=== PATIENT | female | born 1960 | race Caucasian/White ===

== ENCOUNTER 2016-08-22 11:57 | Emergency (ER) | payer SELFPAY ==
[~2016-08-22] VITALS: Ht 157.5 cm; Wt 52.2 kg
[~2016-08-22 11:57] MED LIST: NO MEDICATIONS
[2016-08-22 12:48] VITALS: BP 164/101
== END 2016-08-22 14:42 | disposition home or self-care (01) ==
LOC: ER 12:01
DX: L23.9 Allergic contact dermatitis, unspecified cause (principal); I10 Essential (primary) hypertension; F17.210 Nicotine dependence, cigarettes, uncomplicated; Z86.73 Personal history of transient ischemic attack (TIA), and cerebral infarction without residual deficits

== ENCOUNTER 2016-09-20 03:32 | Emergency (ER) | payer MEDICAID, MEDICARE ==
[~2016-09-20] VITALS: Ht 157.5 cm; Wt 54.4 kg
[2016-09-20 04:36] LABS: Urine RBC None Seen /hpf (0 - 4)
[2016-09-20 04:38] LABS: Basophils # (auto) 0.1 uL; Basophils % (auto) 1.1 % (0.0-2.0); CONDITION Y; DEFINITIVE SEE PRINTOUT; Eosinophils # (auto) 0.4 uL; Eosinophils % (auto) 4.8 % (0.0-7.0); Hematocrit 43.4 % (36.0-46.0); Hemoglobin 14.9 g/dL (12.2-16.2); Lymphocytes # (auto) 2.9 uL; Lymphocytes % (auto) 34.5 % (10.0-50.0); Mean Corpuscular Hemoglobin 35.4 pg (28.0-32.0); Mean Corpuscular Hgb Conc. 34.3 g/dL (32.0-36.0); Mean Corpuscular Volume 103.1 fL (80.0-100.0); Mean Platelet Volume 8.6 fL (7.4-10.4); Monocytes # (auto) 0.7 uL; Monocytes % (auto) 8.7 % (0.0-12.0); Neutrophils # (auto) 4.2 uL; Neutrophils % (auto) 50.9 % (37.0-80.0); Platelet Count (auto) 452 10^3/uL (140-450); Red Cell Distribution Width 12.7 % (11.6-16.0); White Blood Cell 8.3 10^3/uL (4.4-10.8)
[2016-09-20 04:44] LABS: Albumin 3.5 g/dL (3.4-5.0); BUN/Creatinine Ratio 11.4; Calcium 8.5 mg/dL (8.5-10.1); Potassium 3.7 mmol/L (3.5-5.1)
[2016-09-20 04:45] LABS: Urine Bilirubin Negative (Negative); Urine Blood Negative /uL (Negative); Urine Color Yellow (Yellow); Urine Glucose Normal (Normal); Urine Ketone Negative (Negative); Urine Nitrite Negative (Negative); Urine Urobilinogen Normal (Negative); Urine pH 5.5 (5.0-8.0)
[2016-09-20 04:55] LABS: Bilirubin, Total 0.1 mg/dL (0.2-1.0); Total Protein 7.4 g/dL (6.4-8.2)
[2016-09-20] MEDS ORDERED: diphenhdrAMINE HCL 12.5 MG/5 ML UD PO ONE (09:15)
[2016-09-20] MEDS ORDERED: methylPREDNISolone SOD SUCC 125 MG/2 ML VL IM ONE (09:15)
[2016-09-20 10:30] VITALS: BP 100/55
== END 2016-09-20 10:41 | disposition home or self-care (01) ==
LOC: ER 03:32
DX: L23.9 Allergic contact dermatitis, unspecified cause (principal); F12.10 Cannabis abuse, uncomplicated; F15.10 Other stimulant abuse, uncomplicated; F10.10 Alcohol abuse, uncomplicated
CPT/HCPCS: 36415; 80053; 80307; 80320; 81001; 85025; 96372; 99284; J2930

== ENCOUNTER 2016-10-30 01:05 | Emergency (ER) | payer MEDICARE ==
[~2016-10-30] VITALS: Ht 157.5 cm; Wt 51.7 kg
[2016-10-30] MEDS ORDERED: diphenhdrAMINE HCL 50 MG/1 ML VL ONE (04:25)
[2016-10-30] MEDS ORDERED: ONDANSETRON HCL 4 MG/2 ML VIAL ONE (04:25)
[2016-10-30] MEDS ORDERED: HYDROmorphone HCL 2 MG/ML VL ONE (04:25)
[2016-10-30 04:28] VITALS: BP 203/105
[2016-10-30] MEDS ORDERED: HYDROmorphone HCL 2 MG/ML VL IV ONE (04:30)
[2016-10-30] MEDS ORDERED: ONDANSETRON HCL 4 MG/2 ML VIAL IV ONE (04:30)
[2016-10-30] MEDS ORDERED: diphenhdrAMINE HCL 50 MG/1 ML VL IV ONE (04:45)
[2016-10-30] MEDS ORDERED: methylPREDNISolone SOD SUCC 125 MG/2 ML VL IM ONE (05:30)
== END 2016-10-30 05:39 | disposition home or self-care (01) ==
LOC: ER 01:07
DX: L23.9 Allergic contact dermatitis, unspecified cause (principal); I10 Essential (primary) hypertension; I73.9 Peripheral vascular disease, unspecified; F17.210 Nicotine dependence, cigarettes, uncomplicated
CPT/HCPCS: 96374; 96375; 99284; J1170; J1200; J2405

== ENCOUNTER 2017-05-11 15:38 | Inpatient (IN) | payer MEDICARE, OTHER ==
[~2017-05-11] VITALS: Ht 157.5 cm; Wt 53.0 kg
[2017-05-11] MEDS ORDERED: cloNIDine HCL 0.1 MG TAB PO ONE (16:00)
[2017-05-11 17:20] LABS: Eosinophils # (auto) 0.7 uL; Lymphocytes # (auto) 2.4 uL
[2017-05-11 17:22] LABS: Basophils # (auto) 0.1 uL; Basophils % (auto) 0.9 % (0.0-2.0); Eosinophils % (auto) 5.4 % (0.0-7.0); Hematocrit 46.8 % (36.0-46.0); Lymphocytes % (auto) 18.2 % (10.0-50.0); Mean Corpuscular Hemoglobin 35.6 pg (28.0-32.0); Mean Corpuscular Hgb Conc. 34.1 g/dL (32.0-36.0); Mean Corpuscular Volume 104.4 fL (80.0-100.0); Monocytes # (auto) 1.2 uL; Monocytes % (auto) 8.9 % (0.0-12.0); Neutrophils # (auto) 8.7 uL; Neutrophils % (auto) 66.6 % (37.0-80.0); Nucleated Red Blood Cells % 0.3 %; Platelet Count (auto) 429 10^3/uL (140-450); Red Blood Cells 4.49 10^6/uL (4.0-5.20); Red Cell Distribution Width 12.1 % (11.8-14.3); White Blood Cell 13.1 10^3/uL (4.4-10.8)
[2017-05-11 17:58] LABS: Albumin 3.2 g/dL (3.4-5.0); BUN/Creatinine Ratio 24.5; Bilirubin, Total 0.2 mg/dL (0.2-1.0); Calcium 9.3 mg/dL (8.5-10.1); Potassium 4.5 mmol/L (3.5-5.1); Total Protein 8.1 g/dL (6.4-8.2)
[2017-05-12] VITALS (7 sets, daily range): BP systolic 135–173; BP diastolic 79–99
[2017-05-12] MEDS ORDERED: diphenhdrAMINE HCL 50 MG/1 ML VL IV ONE (02:00)
[2017-05-12] MEDS ORDERED: methylPREDNISolone SOD SUCC 125 MG/2 ML VL IV ONE (02:00)
[2017-05-12] MEDS ORDERED: methylPREDNISolone SOD SUCC 125 MG/2 ML VL IM ONE (02:15)
[2017-05-12] MEDS ORDERED: diphenhdrAMINE HCL 50 MG/1 ML VL IM ONE (02:15)
[2017-05-12] MEDS ORDERED: LABETALOL HCL 200 MG TAB PO ONE (03:45)
[2017-05-12 04:33] LABS: Urine Bacteria NONE SEEN /hpf (None Seen); Urine Blood Negative /uL (Negative); Urine Mucus FEW (None Seen); Urine Specific Gravity 1.027 (1.001-1.035); Urine WBC 5 /hpf (0 - 5)
[2017-05-12] MEDS ORDERED: ONDANSETRON HCL 4 MG/2 ML VIAL IV PRN (05:15)
[2017-05-12] MEDS ORDERED: cloNIDine HCL 0.1 MG TAB PO PRN (05:15)
[2017-05-12] MEDS ORDERED: TEMAZEPAM 15 MG CAP PO PRN (05:15)
[2017-05-12] MEDS: PIPERACILLIN-TAZOB 3.375GM 50 ML IV SCH ×2 (05:39→11:41)
[2017-05-12] MEDS: predniSONE 20 MG TAB PO SCH (10:08)
[2017-05-12] MEDS: FAMOTIDINE 20 MG TAB PO SCH ×2 (10:08→21:52)
[2017-05-12] MEDS: ENOXAPARIN SOD 40 MG/0.4 ML SYRINGE SC SCH (10:08)
[2017-05-12] MEDS: HYDROCORTONE 1% TOPICAL CREAM 30 GM TUBE TOP SCH ×2 (10:46→21:52)
[2017-05-12] MEDS: diphenhdrAMINE HCL 25 MG CAP PO PRN ×2 (10:47→18:55)
[2017-05-12] MEDS ORDERED: LISINOPRIL 5 MG TAB PO ONE (15:45)
[2017-05-12] MEDS: chlordiazePOXIDE HCL 5 MG CAP PO PRN (16:24)
[2017-05-13 04:58] VITALS: BP 155/98
[2017-05-13 06:37] LABS: Alcohol, Urine < 3.0 mg/dL (0-5); Amphetamine Screen, Urine NEGATIVE (NEGATIVE); Barbiturate Scree,Urine NEGATIVE (NEGATIVE); Benzodiazephine Screen, Urine NEGATIVE (NEGATIVE); Cannabinoid Screen, Urine POSITIVE (NEGATIVE); Cocaine Screen, Urine NEGATIVE (NEGATIVE); Opiate Scree,Urine NEGATIVE (NEGATIVE); Phencyclidine Screen, Urine NEGATIVE (NEGATIVE)
[2017-05-13 07:14] LABS: Alanine Aminotransferase 23 U/L (13-56); Alkaline Phosphatase 95 U/L (45-117); Anion Gap 7 (5-15); Aspartate Aminotransferase 24 U/L (15-37); Bilirubin, Total < 0.1 mg/dL (0.2-1.0); Blood Urea Nitrogen 18 mg/dL (7-18); Carbon Dioxide 24 mmol/L (21-32); Chloride 108 mmol/L (98-107); Cholesterol 171 mg/dL (< 200); GFR African American 102 mL/min; GFR Non-African American 84 mL/min; Glucose 93 mg/dL (74-106); HDL Cholesterol 56 mg/dL (40-59); LDL Cholesterol 100 mg/dL (< 100); Potassium 4.3 mmol/L (3.5-5.1); Sodium 139 mmol/L (136-145); Total Protein 7.2 g/dL (6.4-8.2); Triglycerides 130 mg/dL (< 150)
[2017-05-13] MEDS: ENOXAPARIN SOD 40 MG/0.4 ML SYRINGE SC SCH (07:59)
[2017-05-13] MEDS: predniSONE 20 MG TAB PO SCH (07:59)
[2017-05-13] MEDS: THIAMINE HCL 100 MG TAB PO SCH (08:00)
[2017-05-13] MEDS: ACETAMINOPHEN 325 MG TAB PO PRN ×2 (08:00→21:56)
[2017-05-13] MEDS: chlordiazePOXIDE HCL 5 MG CAP PO PRN (08:00)
[2017-05-13] MEDS: diphenhdrAMINE HCL 25 MG CAP PO PRN ×2 (08:00→21:56)
[2017-05-13] MEDS: FAMOTIDINE 20 MG TAB PO SCH ×2 (08:00→21:56)
[2017-05-13] MEDS: LISINOPRIL 5 MG TAB PO SCH (08:01)
[2017-05-13 08:13] LABS: Eosinophils # (auto) 0.1 uL; Hemoglobin 14.2 g/dL (12.2-16.2); Monocytes # (auto) 1.1 uL; Red Cell Distribution Width 12.1 % (11.8-14.3)
[2017-05-13 08:16] LABS: Basophils # (auto) 0.1 uL; Basophils % (auto) 0.6 % (0.0-2.0); Eosinophils % (auto) 0.7 % (0.0-7.0); Hematocrit 42.2 % (36.0-46.0); Lymphocytes # (auto) 2.6 uL; Lymphocytes % (auto) 23.3 % (10.0-50.0); Mean Corpuscular Hemoglobin 35.2 pg (28.0-32.0); Mean Corpuscular Hgb Conc. 33.6 g/dL (32.0-36.0); Mean Corpuscular Volume 104.7 fL (80.0-100.0); Monocytes % (auto) 9.9 % (0.0-12.0); Neutrophils # (auto) 7.2 uL; Neutrophils % (auto) 65.5 % (37.0-80.0); Nucleated Red Blood Cells % 0.2 %; Platelet Count (auto) 357 10^3/uL (140-450); Red Blood Cells 4.03 10^6/uL (4.0-5.20)
[2017-05-13 09:00] VITALS: BP 161/104
[2017-05-13] MEDS: HYDROCORTONE 1% TOPICAL CREAM 30 GM TUBE TOP SCH ×2 (09:57→21:57)
[2017-05-13] MEDS ORDERED: LABETALOL HCL 200 MG TAB PO ONE (11:15)
[2017-05-13] MEDS: MULTIPLE VITAMIN 10 ML, FOLIC ACID 1 MG, MAGNESIUM SULF SDV 50% 8 MEQ in D5W 5% 1,000 ML IV SCH (11:53)
[2017-05-13 13:00] VITALS: BP 149/76
[2017-05-13 16:38] VITALS: BP 126/73
[2017-05-13] MEDS: LABETALOL HCL 200 MG TAB PO SCH (21:56)
[2017-05-13 22:00] VITALS: BP 139/84
[2017-05-14 05:00] VITALS: BP 121/76
[2017-05-14 09:00] VITALS: BP 102/57
[2017-05-14] MEDS: LABETALOL HCL 200 MG TAB PO SCH (10:00)
[2017-05-14] MEDS: LISINOPRIL 5 MG TAB PO SCH (10:00)
[2017-05-14] MEDS: FAMOTIDINE 20 MG TAB PO SCH (10:36)
[2017-05-14] MEDS: ENOXAPARIN SOD 40 MG/0.4 ML SYRINGE SC SCH (10:37)
[2017-05-14] MEDS: THIAMINE HCL 100 MG TAB PO SCH (10:37)
[2017-05-14] MEDS: predniSONE 20 MG TAB PO SCH (10:37)
[2017-05-14] MEDS: HYDROCORTONE 1% TOPICAL CREAM 30 GM TUBE TOP SCH (10:38)
[2017-05-14] MEDS: diphenhdrAMINE HCL 25 MG CAP PO PRN (10:38)
[2017-05-14] MEDS: MULTIPLE VITAMIN 10 ML, FOLIC ACID 1 MG, MAGNESIUM SULF SDV 50% 8 MEQ in D5W 5% 1,000 ML IV SCH (12:47)
[2017-05-14 13:00] VITALS: BP 137/80
[2017-05-14] MEDS ORDERED: LISI-275 PO (13:18)
[2017-05-14] MEDS ORDERED: DIP25C PO (13:18)
[2017-05-14] MEDS ORDERED: LAB200T PO (13:18)
[2017-05-14] MEDS ORDERED: ATOR10TA52 PO (13:24)
[2017-05-14] MEDS ORDERED: ASPI-231 PO (13:24)
[2017-05-14] MEDS ORDERED: MULTTAB61 PO (13:24)
[2017-05-14] MEDS: chlordiazePOXIDE HCL 5 MG CAP PO PRN (16:20)
[2017-05-14 17:00] VITALS: BP 149/82
== END 2017-05-14 18:45 | disposition home or self-care (01) | DRG 607 ==
LOC: EDBD 15:38 → ER 15:45 → OVERFLOW 15:46 → CENTRAL 05-12 10:29 → EAST 05-13 19:30
PROVIDERS: ADMIT Nurse Practitioner; ATTEND Internal Medicine
DX: L25.9 Unspecified contact dermatitis, unspecified cause (principal); D72.829 Elevated white blood cell count, unspecified; F10.239 Alcohol dependence with withdrawal, unspecified; I10 Essential (primary) hypertension; F41.9 Anxiety disorder, unspecified; E86.0 Dehydration; F15.10 Other stimulant abuse, uncomplicated; F12.10 Cannabis abuse, uncomplicated; I73.9 Peripheral vascular disease, unspecified; G47.00 Insomnia, unspecified; F17.210 Nicotine dependence, cigarettes, uncomplicated; Z82.3 Family history of stroke; Z83.3 Family history of diabetes mellitus; Z86.73 Personal history of transient ischemic attack (TIA), and cerebral infarction without residual deficits
CPT/HCPCS: 36415; 71045; 80053; 80061; 80307; 81001; 83516; 85025; 85652; 86141; 86225; 86235; 93306; 96372; J2543

== ENCOUNTER 2024-05-01 15:57 | Inpatient (IN) | payer MEDICARE, OTHER ==
[~2024-05-01] VITALS: Ht 157.5 cm; Wt 110.0 kg
[~2024-05-01 15:57] MED LIST changes: +ASPI1TAB20 PO; +ATOR10TA52 PO; +DIPH25CA51 PO; +LABE200T10 PO; +LISI-275 PO; +MULT-1018 PO; -NO MEDICATIONS
[2024-05-01] MEDS: fentaNYL CITRATE 100 MCG/2 ML VL IV ONE (16:15)
--- NOTE | 2024-05-01 16:28 | ED.PDOC ---
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 Pt informs she was letting her dogs into the house when she "apparently walking to fast" and hit her back on a bar and her left hip. PMHx of HTN, PAD and CT. SHx of Tubal L igation. Social Hx of tobacco use, but denies alcohol and substance use. Denies chills, fever, N/V/D, SOB, CP or other associated symptom's, modifiers, or recent injuries or sick contact at this time. Chief Complaint: Fall Injury Time Seen by MD: 16:00 Primary Care Provider: dr. gould Reviewed Notes: Nurses Notes, Administrative Staff Supervisor Notes, Medications, Allergies Allergies: Coded Allergies: NO KNOWN ALLERGIES (Unverified , 05/30/11) Home Meds Active Scripts Multiple Vitamin (Multivitamins) Tab, 1 TAB PO DAILY, #90 TAB 0 Refills Prov:JOSE L ROQUE MD 05/14/17 Atorvastatin Calcium (ATORVASTATIN CALCIUM) 10 Mg Tab, 1 TAB PO DAILY, #90 TAB 0 Refills Prov:JOSE L ROQUE MD 05/14/17 Aspirin (Aspir-81) 81 Mg Tab, 1 TAB PO DAILY, #90 TAB 0 Refills Prov:JOSE L ROQUE MD 05/14/17 Lisinopril (Lisinopril) 5 Mg Tab, 5 MG PO DAILY, #30 TAB Prov:JOSE L ROQUE MD 05/14/17 Labetalol HCl (Labetalol HCl) 200 Mg Tab, 200 MG PO Q12HR, #60 TAB Prov:JOSE L ROQUE MD 05/14/17 Diphenhydramine Hcl (BENADRYL CAPSULE) 25 Mg Cp, 50 MG PO Q8HP PRN, #30 CP Prov:JOSE L ROQUE MD 05/14/17 Information Source: Patient, Emergency Med Personnel Mode of Arrival: EMS Severity: Moderate Timing: Minutes Duration: Since onset, Minutes Past Medical History PAST MEDICAL HISTORY: CVA (left with partial blindness on the left eye), HTN, PAD Surgical History: Tubal Ligation PUMP MECHANIC History: No Pertinent PUMP MECHANIC History Family History Family History: Reviewed,noncontributory to illness, Unknown Social History Smoker: Cigarettes, Less Than 1 Pack/Day Alcohol: Denies ETOH Use Drugs: Denies Drug Use Lives In: Home Constitutional: reports: others (mechanical fall); denies: chills, diaphoresis, fatigue, fever, malaise, sweats, weakness EENTM: denies: blurred vision, double vision, ear bleeding, ear discharge, ear drainage, ear pain, ear ringing, eye pain, eye redness, hearing loss, mouth pain, mouth swelling, nasal discharge, nose bleeding, nose congestion, nose pain, photophobia, tearing, throat pain, throat swelling, voice changes, others Respiratory: denies: cough, hemoptysis, orthopnea, SOB at rest, shortness of breath, SOB with excertion, stridor, wheezing, others Cardiovascular: denies: chest pain, dizzy spells, diaphoresis, Dyspnea on exertion, edema, irregular heart beat, left arm pain, lightheadedness, palpitations, PND, syncope, others Gastrointestinal: denies: abdomen distended, abdominal pain, blood streaked bowels, constipated, diarrhea, dysphagia, difficulty swallowing, hematemesis, melena, nausea, poor appetite, poor fluid intake, rectal bleeding, rectal pain, vomiting, others Genitourinary: denies: abnormal vagina bleeding, burning, dyspareunia, dysuria, flank pain, frequency, hematuria, incontinence, pain, , vagina discharge, urgency, others Neurological: denies: dizziness, fainting, headache, left sided numbness, left sided weakness, numbness, paresthesia, pre-existing deficit, right sided numbness, right sided weakness, seizure, speech problems, tingling, tremors, weakness, others Musculoskeletal: denies: back pain, gout, joint pain, joint swelling, muscle pain, muscle stiffness, neck pain, others Integumetry: denies: bruises, change in color, change in hair/nails, dryness, laceration, lesions, lumps, rash, wounds, others Allergic/Immunocompromised: denies: Difficulty Healing, Frequent Infections, Hives, Itching, others Hematologic/Lymphatic: denies: anemia, blood clots, easy bleeding, easy bruising, swollen glands, others Endocrine: denies: excessive hunger, excessive sweating, excessive thirst, excessive urination, flushing, intolerance to cold, intolerance to heat, unexplained weight gain, unexplained weight loss, others Psychiatric: denies: anxiety, bipolar disorder, depression, hopeless, panic disorder, schizophrenia, sleepless, suicidal, others All Other Systems: Reviewed and Negative Physical Exam Exam Comments left hip pain and lower lumbar tenderness w/ palpation General Appearance: No Apparent Distress, Normal HEENT: Normal ENT Inspection, Pharynx Normal, TMs Normal Neck: Full Range of Motion, Non-Tender, Normal, Normal Inspection Respiratory: Chest Non-Tender, Lungs Clear, No Accessory Muscle Use, No Respiratory Distress, Normal Breath Sounds Cardiovascular: No Edema, No JVD, No Murmur, No Gallop, Normal Peripheral Pulses, Regular Rate/Rhythm Breast Exam: Deferred Gastrointestinal: No Organomegaly, Non Tender, No Pulsatile Mass, Normal Bowel Sounds, Soft Genitalia: Deferred Pelvic: Deferred Rectal: Deferred Extremities: No calf tenderness, Normal capillary refill, Normal inspection, Normal range of motion, Non-tender, No pedal edema Musculoskeletal : Apperance: Normal Neurologic: Alert, monotyper II-XII nml as Tested, No Motor Deficits, Normal Affect, Normal Mood, No Sensory Deficits Cerebellar Function: Normal Reflexes: Normal Skin: Dry, Normal Color, Warm Lymphatic: No Adenopathy Was a procedure done? Was a procedure done?: No Differential Dx Considerations may include: hip fracture, spinal fracture, herniated disc, femur fracture, sprain, contusion,hematoma, strain X-Ray, Labs, Meds, VS Vital Signs Date Time Temp Pulse Resp B/P (MAP) Pulse Ox O2 Delivery O2 Flow Rate FiO2 05/01/24 16:07 100.0 80 16 150/80 (103) 97 Lab Test 05/01/24 16:36 Range/Units White Blood Count 7.9 4.4-10.8 10^3/uL Red Blood Count 3.78 L 4.0-5.20 10^6/uL Hemoglobin 13.5 12.2-16.2 g/dL Hematocrit 38.2 36.0-46.0 % Mean Corpuscular Volume 101.2 H 80.0-100.0 fL Mean Corpuscular Hemoglobin 35.8 H 28.0-32.0 pg Mean Corpuscular Hemoglobin Concent 35.3 32.0-36.0 g/dL Red Cell Distribution Width 12.3 11.8-14.3 % Platelet Count 209 140-450 10^3/uL Mean Platelet Volume 9.8 6.9-10.8 fL Neutrophils (%) (Auto) 84.4 H 37.0-80.0 % Lymphocytes (%) (Auto) 4.7 L 10.0-50.0 % Monocytes (%) (Auto) 9.8 0.0-12.0 % Eosinophils (%) (Auto) 0.5 0.0-7.0 % Basophils (%) (Auto) 0.6 0.0-2.0 % Neutrophils # (Auto) 6.7 1.6-8.6 10 ^3/uL Lymphocytes # (Auto) 0.4 0.4-5.4 10 ^3/uL Monocytes # (Auto) 0.8 0-1.3 10 ^3/uL Eosinophils # (Auto) 0 0-0.8 10 ^3/uL Basophils # (Auto) 0 0-0.2 10 ^3/uL Nucleated Red Blood Cells 0.0 % Sodium Level 138 136-145 mmol/L Potassium Level 3.9 3.5-5.1 mmol/L Chloride Level 105 98-107 mmol/L Carbon Dioxide Level 26 20-31 mmol/L Anion Gap 7 5-15 Blood Urea Nitrogen 11 9-23 mg/dL Creatinine 0.70 0.550-1.02 mg/dL Glomerular Filtration Rate Calc 96 >90 mL/min BUN/Creatinine Ratio 15.7 10.0-20.0 Serum Glucose 90 74-106 mg/dL Calcium Level 9.6 8.7-10.4 mg/dL Time of 1ST Reevaluation: 16:30 Reevaluation 1ST: Unchanged Time of 2ND Reevaluation: 17:37 Reevaluation 2ND: Unchanged Patient Education/Counseling: Diagnosis, Treatment, Prognosis, Need For Follow Up Family Education/Counseling: No Family Present Additional Information - I reviewed the following notes from patient's past medical encounters:05/11/17 - The following tests were ordered, and results were reviewed by me: EKG, CT, PHA and XY - I reviewed and agreed with the following test results read by other provider: X-ray, CT - I discussed treatments and results with medical personnel and: (consultants) pt remains in severe pain when tried to move her or turn her. her pain is focused on the left hip, but the ct is unremarkable. i will have her admitted for pain control and reassessment Departure 1 Departure Time of Disposition: 17:38 Impression: Primary Impression: Intractable pain Additional Impressions: Hip pain Qualified Codes: M25.552 - Pain in left hip Low back pain Qualified Codes: M54.50 - Low back pain, unspecified Falling Disposition: 09 ADMITTED INPATIENT Admit to: Med Surg Condition: Stable Discharged With: Self Critical Care Note Critical Care Time?: Yes (45 min-critical care time only) Critical care comment: due to concerns for deterioration of patient's condition, the care required my highest level of attention and readiness. i assessed the patient's condition, revieweed relavent documents, communicated with medical personnel, ordered the proper tests and treatments, reassed fro results and response to treatments, spoke to family and consultants and formulated a plan of care Stability Stability form required: No I personally scribed for AZEEM VAUGHN MD ([email or web address]) on 05/01/24 at 16:28. Electronically submitted by Clint Middleton ([email or web address]). AZEEM VAUGHN MD May 01, 2024 16:28
--- NOTE | 2024-05-01 16:41 | DVH ---
CT LS SPINE WO CONTRAST Date: 05/01/2024 04:16 PM History: fall Comparison: None TECHNIQUE: Multiple axial CT images of the lumbosacral spine were obtained using bone algorithm. Axial and coron al reformatting was done. Bone and soft tissue windows were reviewed. Radiation Dose Information: CT Dose: CTDI volume is 7.5 mGy. Dose-length product is 234.57 mGy*cm FINDINGS: No CT evidence of definite acute fracture, spinal dislocation, or significant appearing acute subluxa tion is seen. The visualized paraspinal soft tissues are grossly unremarkable. T12-L1 There is no evidence of central spinal canal or neuroforaminal stenosis. Mild compression supe rior endplate of T12 no bony displacement no spinal stenosis. L1-L2 There is no evidence of central spinal canal or neuroforaminal stenosis. L2-L3 There is no evidence of central spinal canal or neuroforaminal stenosis. L3-L4 There is no evidence of central spinal canal or neuroforaminal stenosis. Grade 1 anterior spond ylolisthesis L3-4 with no central canal stenosis L4-L5 There is no evidence of central spinal canal or neuroforaminal stenosis. Diffuse annular bulge of the disc with hypertrophic arthritic bony changes to the articular facets bilaterally and ligament um flavum hypertrophy bilaterally. Although the thecal sac is compressed to a trefoil configuration t here is no central spinal canal stenosis L5-S1 There is no evidence of central spinal canal or neuroforaminal stenosis. IMPRESSION: 1. No definite CT evidence of acute fracture or dislocation of the bony lumbar spine. 2. Diffuse annular bulge of the disc hypertrophy of the ligamentum flavum and posterior facets. No ce ntral canal stenosis. 3. Grade 1 anterior spondylolisthesis at L3-4 with no central canal stenosis. All CT scans at this medical facility are performed using dose modulation techniques as appropriate t o a performed exam including the following: Automated exposure control was utilized; adjustment of th e MA and/or KV according to patient size; and use of iterative reconstruction technique.
--- NOTE | 2024-05-01 16:45 | DVH ---
CHEST RADIOGRAPH Indication: fall Technique: Single frontal view of the chest was obtained Comparison: None FINDINGS: Lines and Tubes: None Lungs: No focal consolidation. Pleura: No effusion. No pneumothorax. Cardiomediastinal contours: Unremarkable Bones: No acute osseous abnormality. IMPRESSION: 1. No acute cardiopulmonary disease.
--- NOTE | 2024-05-01 16:49 | DVH ---
Procedure: CT CT L HIP WITH OUT CONTRAST 05/01/2024 04:19 PM Indication: r/o fx Comparison Study: None Technique: Axial images of the left hip were obtained and reformatted in coronal and sagittal planes. All CT scans at this medical facility are performed using dose modulation techniques as appropriate t o a performed exam including the following: Automated exposure control was utilized; adjustment of th e MA and/or KV according to patient size; and use of iterative reconstruction technique. CT Dose: CTDI volume is 7.08 mGy. Dose-length product is 168.69 mGy*cm FINDINGS: Bones: No acute fracture or dislocation. The left hip joint is maintained. No proximal femoral fract ure. The pubic rami and acetabulum are intact. Mild acetabular osteophytosis. Soft tissues: Unremarkable. IMPRESSION: 1. No acute osseous abnormality of the left hip.
[2024-05-01 16:56] LABS: Basophils # (auto) 0 10 ^3/uL (0-0.2); Eosinophils # (auto) 0 10 ^3/uL (0-0.8); Eosinophils % (auto) 0.5 % (0.0-7.0); Hemoglobin 13.5 g/dL (12.2-16.2); Lymphocytes # (auto) 0.4 10 ^3/uL (0.4-5.4); Monocytes # (auto) 0.8 10 ^3/uL (0-1.3)
[2024-05-01 16:57] LABS: Basophils % (auto) 0.6 % (0.0-2.0); Hematocrit 38.2 % (36.0-46.0); Lymphocytes % (auto) 4.7 % (10.0-50.0); Mean Corpuscular Hemoglobin 35.8 pg (28.0-32.0); Mean Corpuscular Hgb Conc. 35.3 g/dL (32.0-36.0); Mean Corpuscular Volume 101.2 fL (80.0-100.0); Monocytes % (auto) 9.8 % (0.0-12.0); Neutrophils # (auto) 6.7 10 ^3/uL (1.6-8.6); Neutrophils % (auto) 84.4 % (37.0-80.0); Platelet Count (auto) 209 10^3/uL (140-450); Red Blood Cells 3.78 10^6/uL (4.0-5.20); Red Cell Distribution Width 12.3 % (11.8-14.3); White Blood Cell 7.9 10^3/uL (4.4-10.8)
[2024-05-01 17:07] LABS: Chloride 105 mmol/L (98-107); Potassium 3.9 mmol/L (3.5-5.1); Sodium 138 mmol/L (136-145)
[2024-05-01 17:08] LABS: Anion Gap 7 (5-15); Calcium 9.6 mg/dL (8.7-10.4); Carbon Dioxide 26 mmol/L (20-31)
[2024-05-01 17:13] LABS: BUN/Creatinine Ratio 15.7 (10.0-20.0); Blood Urea Nitrogen 11 mg/dL (9-23); Glucose 90 mg/dL (74-106)
[2024-05-01] MEDS: HYDROcodone-ACET 5/325MG TAB PO ONE (17:50)
[2024-05-01] MEDS ORDERED: DOCUSATE SOD 100 MG CAP PO PRN (20:45)
[2024-05-01] MEDS ORDERED: ONDANSETRON HCL 4 MG/2 ML VIAL IV PRN (20:45)
[2024-05-01] MEDS ORDERED: ACETAMINOPHEN 325 MG TAB PO PRN (20:45)
[2024-05-01] MEDS ORDERED: hydrALAZINE HCL 20 MG/ML VL IV PRN (20:45)
[2024-05-01] MEDS ORDERED: MORPHINE SULFATE INJ 2 MG/ml SYRG IV PRN ×2 (20:45→21:45)
--- NOTE | 2024-05-01 21:36 | DVHHP2 ---
History of Present Illness Reason for Visit: Intractable pain History of Present Illness The patient is a 63-year-old female with past medical history of left eye partial blindness, CVA, peripheral artery disease, and hypertension who presented to [facility] ED for evaluation of mechanical fall at home. Patient reports she was letting her dog into the house when she slipped and fell hitting her left hip with sustained pain injury. Patient was seen and evaluated in the ED, laboratory data shows WBC 7.9, platelets 209, sodium 138, potassium 3.9, BUN 11, creatinine 0.70, GFR 96, glucose 90, blood pressure 146/74, heart rate 72, temperature 97.7 F, O2 saturation 96% on room air. Left hip CT showed no acute osseous abnormality. Please see medication orders section in the computer. On my assessment, patient denied chest pain, no headache, no dizziness, no loss of consciousness, no shortness of breath, no abdominal pain, no nausea, no vomiting, no fever, no chills. Patient was admitted for further evaluation and medical management. Past Medical History CVA (left with partial blindness on the left eye), HTN, PAD, [place]. Past Surgical History Tubal Ligation Family History Reviewed, noncontributory to the management of this case. Past Social History The patient lives at home, smokes cigarettes less than 1 pack per day, denies alcohol or illicit drugs abuse. Review of Systems Constitutional: Yes: Weakness, Other (Mechanical fall); No: Fever, Chills, Sweats, Malaise Eyes: No: Pain, Vision change, Conjunctivae inflammation, Eyelid inflammation, Other, Redness ENT: No: Ear pain, Ear discharge, Nose pain, Nose discharge, Nose congestion, Mouth pain, Mouth swelling, Throat pain, Throat swelling, Other Respiratory: No: Cough, Dry, Shortness of breath, SOB with excertion, Wheezing, Hemoptysis, Pleuritic Pain, Sputum, Wheezing, Other Cardiovascular: No: Chest Pain, Palpitations, Orthopnea, Paroxysmal Noc. Dyspnea, Edema, Lt Headedness, Other Gastrointestinal: No: Nausea, Vomiting, Abdominal Pain, Diarrhea, Constipation, Melena, Hematochezia, Other Genitourinary: No Dysuria, No Frequency, No Incontinence, No Hematuria, No Retention, No Other Musculoskeletal: other (Left hip pain); No: neck pain, shoulder pain, arm pain, back pain, hand pain, leg pain, foot pain Skin: No: Rash, Lesions, Jaundice, Bruising, Other Neurological: No: Weakness, Numbness, Incoordination, Change in speech, Confusion, Seizures, Other Allergies: Coded Allergies: NO KNOWN ALLERGIES (Unverified , 05/30/11) Medications Current Medications Medications Dose Ordered Sig/Oksana Route Start Time Stop Time Status Last Admin Dose Admin Aspirin 81 mg DAILY PO 05/02/24 10:00 Atorvastatin Calcium 10 mg HS PO 05/01/24 22:00 Labetalol HCl 100 mg Q12HR PO 05/01/24 22:00 Hydralazine HCl 10 mg Q6HP PRN IV 05/01/24 20:45 Lisinopril 5 mg DAILY PO 05/02/24 10:00 Sodium Chloride 1,000 ml @ 60 mls/hr [id number] IV 05/01/24 20:45 Acetaminophen/ Hydrocodone Bitart 1 tab Q4HP PRN PO 05/01/24 20:45 Ondansetron HCl 4 mg Q4HP PRN IV 05/01/24 20:45 Docusate Sodium 100 mg BIDPRN PRN PO 05/01/24 20:45 Acetaminophen 650 mg Q6HP PRN PO 05/01/24 20:45 Morphine Sulfate 2 mg Q4HPRN PRN IV 05/01/24 20:45 Exam Vital Signs Vital Signs Date Time Temp Pulse Resp B/P (MAP) Pulse Ox O2 Delivery O2 Flow Rate FiO2 05/01/24 19:30 97.7 72 17 146/74 (98) 95 97.7 05/01/24 19:25 Room Air* 0 21 General Appearance: Alert, Oriented X3, Cooperative, No acute distress HEENT: Atraumatic, PERRLA, EOMI, Mucous membr. moist/pink Respiratory: Clear to auscultation, Normal air movement Cardiovascular: Regular rate, Normal S1, Normal S2, No murmurs Abdominal: Normal bowel sounds, Soft, No tenderness, No hepatospenomegaly, No masses Extremities: No clubbing, No cyanosis, No edema, Normal pulses, No tenderness/swelling Skin: No rashes, No breakdown, No significant lesion Neuro: Normal speech, Normal tone, Sensation intact, Cranial nerves 3-12 NL, Reflexes 2+, Other (Generalized weakness) Psych/Mental Status: Mental status NL, Mood NL Labs/Xrays Labs Test 05/01/24 16:36 Range/Units White Blood Count 7.9 4.4-10.8 10^3/uL Red Blood Count 3.78 L 4.0-5.20 10^6/uL Hemoglobin 13.5 12.2-16.2 g/dL Hematocrit 38.2 36.0-46.0 % Mean Corpuscular Volume 101.2 H 80.0-100.0 fL Mean Corpuscular Hemoglobin 35.8 H 28.0-32.0 pg Mean Corpuscular Hemoglobin Concent 35.3 32.0-36.0 g/dL Red Cell Distribution Width 12.3 11.8-14.3 % Platelet Count 209 140-450 10^3/uL Mean Platelet Volume 9.8 6.9-10.8 fL Neutrophils (%) (Auto) 84.4 H 37.0-80.0 % Lymphocytes (%) (Auto) 4.7 L 10.0-50.0 % Monocytes (%) (Auto) 9.8 0.0-12.0 % Eosinophils (%) (Auto) 0.5 0.0-7.0 % Basophils (%) (Auto) 0.6 0.0-2.0 % Neutrophils # (Auto) 6.7 1.6-8.6 10 ^3/uL Lymphocytes # (Auto) 0.4 0.4-5.4 10 ^3/uL Monocytes # (Auto) 0.8 0-1.3 10 ^3/uL Eosinophils # (Auto) 0 0-0.8 10 ^3/uL Basophils # (Auto) 0 0-0.2 10 ^3/uL Nucleated Red Blood Cells 0.0 % Sodium Level 138 136-145 mmol/L Potassium Level 3.9 3.5-5.1 mmol/L Chloride Level 105 98-107 mmol/L Carbon Dioxide Level 26 20-31 mmol/L Anion Gap 7 5-15 Blood Urea Nitrogen 11 9-23 mg/dL Creatinine 0.70 0.550-1.02 mg/dL Glomerular Filtration Rate Calc 96 >90 mL/min BUN/Creatinine Ratio 15.7 10.0-20.0 Serum Glucose 90 74-106 mg/dL Calcium Level 9.6 8.7-10.4 mg/dL PATIENT: SALMA ENGEL ACCT: [id number] UNIT: [id number] : 1960 LOC: ER ROOM / BED: / AGE / SEX: 63 / F ADM STATUS: REG ER SERVICE 1609 ORDERING PHYSICIAN: AZEEM VAUGHN MD PROCEDURE(s): LS2CT - LS SPINE WO CONTRAST REASON: fall ORDER NUMBER(s): [id number], ACCESSION NUMBER(s): [id number] CT LS SPINE WO CONTRAST Date: 05/01/2024 04:16 PM History: fall Comparison: None TECHNIQUE: Multiple axial CT images of the lumbosacral spine were obtained using bone algorithm. Axial and coronal reformatting was done. Bone and soft tissue windows were reviewed. Radiation Dose Information: CT Dose: CTDI volume is 7.5 mGy. Dose-length product is 234.57 mGy*cm FINDINGS: No CT evidence of definite acute fracture, spinal dislocation, or significant appearing acute subluxation is seen. The visualized paraspinal soft tissues are grossly unremarkable. T12-L1 There is no evidence of central spinal canal or neuroforaminal stenosis. Mild compression superior endplate of T12 no bony displacement no spinal stenosis. L1-L2 There is no evidence of central spinal canal or neuroforaminal stenosis. L2-L3 There is no evidence of central spinal canal or neuroforaminal stenosis. L3-L4 There is no evidence of central spinal canal or neuroforaminal stenosis. Grade 1 anterior spondylolisthesis L3-4 with no central canal stenosis L4-L5 There is no evidence of central spinal canal or neuroforaminal stenosis. Diffuse annular bulge of the disc with hypertrophic arthritic bony changes to the articular facets bilaterally and ligamentum flavum hypertrophy bilaterally. Although the thecal sac is compressed to a trefoil configuration there is no central spinal canal stenosis L5-S1 There is no evidence of central spinal canal or neuroforaminal stenosis. IMPRESSION: 1. No definite CT evidence of acute fracture or dislocation of the bony lumbar spine. 2. Diffuse annular bulge of the disc hypertrophy of the ligamentum flavum and posterior facets. No central canal stenosis. 3. Grade 1 anterior spondylolisthesis at L3-4 with no central canal stenosis. ORDERING PHYSICIAN: AZEEM VAUGHN MD PROCEDURE(s): LHPCT - CT L HIP WITH OUT CONTRAST REASON: r/o fx ORDER NUMBER(s): [id number], ACCESSION NUMBER(s): [id number] Procedure: CT CT L HIP WITH OUT CONTRAST 05/01/2024 04:19 PM Indication: r/o fx Comparison Study: None Technique: Axial images of the left hip were obtained and reformatted in coronal and sagittal planes. All CT scans at this medical facility are performed using dose modulation techniques as appropriate to a performed exam including the following: Automated exposure control was utilized; adjustment of the MA and/or KV according to patient size; and use of iterative reconstruction technique. CT Dose: CTDI volume is 7.08 mGy. Dose-length product is 168.69 mGy*cm FINDINGS: Bones: No acute fracture or dislocation. The left hip joint is maintained. No proximal femoral fracture. The pubic rami and acetabulum are intact. Mild acetabular osteophytosis. Soft tissues: Unremarkable. IMPRESSION: 1. No acute osseous abnormality of the left hip. ORDERING PHYSICIAN: AZEEM VAUGHN MD PROCEDURE(s): CXRP - CHEST PORTABLE REASON: fall ORDER NUMBER(s): [id number], ACCESSION NUMBER(s): [id number] CHEST RADIOGRAPH Indication: fall Technique: Single frontal view of the chest was obtained Comparison: None FINDINGS: Lines and Tubes: None Lungs: No focal consolidation. Pleura: No effusion. No pneumothorax. Cardiomediastinal contours: Unremarkable Bones: No acute osseous abnormality. IMPRESSION: 1. No acute cardiopulmonary disease. Assessment/Plan Assessment/Plan Intractable pain Pain in left hip Low back pain Low back pain, unspecified Fall with injury Plan 1. Admit to med surge unit 2. Breathing treatment 3. Pain control management 4. Management of fluids and electrolytes 5. Consultation for hospitalist 6. Diagnostic tests left hip CT 7. DVT prophylaxis-on SCDs 8. Repeat labs CBC, CMP in a.m. 9. Continue with current medical management 10. Treatment plan discussed with patient and RN. Patient verbalized understanding. Plan discussed with: Patient, Other (RN) My Orders Orders - GAYLE STREET DNP Procedure Category Date Status Time Aspirin Tablet PHA 05/02/24 In Process 10:00 Atorvastatin (Lipitor) PHA 05/01/24 In Process 22:00 Labetalol Hcl Tablet PHA 05/01/24 In Process (Normodyne Tablet) 22:00 Hydralazine Injection PHA 05/01/24 In Process (Apresoline Inject 20:45 Lisinopril Tablet PHA 05/02/24 In Process (Zestril Tablet) 10:00 Allergies MARILU 05/01/24 In Process 20:38 Code Status CODE 05/01/24 Transmitted 20:38 Sodium Chloride 0.9% PHA 05/01/24 In Process 20:45 Oxygen Per Hour RT 05/01/24 Transmitted 20:38 Hydrocodone-Acet PHA 05/01/24 In Process 5/325mg Tab ([place] 20:45 Ondansetron Hcl PHA 05/01/24 In Process (Zofran) 20:45 Docusate Sodium PHA 05/01/24 In Process Capsule (Colace 20:45 Fall Risk Precautions MARILU 05/01/[address] 20:38 Complete Blood Count LAB 05/02/24 Verified 04:00 Comprehensive LAB 05/02/24 Verified Metabolic Panel 04:00 Condition: Serious MARILU 05/01/24 In Process 20:38 Acetaminophen Tablet PHA 05/01/24 In Process (Tylenol Tablet) 20:45 Morphine Sulfate PHA 05/01/24 In Process Injection 20:45 Sequential MARILU 05/01/24 In Process Compression Device Problem List: (1) Intractable pain (2) Pain in left hip (3) Low back pain (4) Fall with injury (5) Low back pain, unspecified Date of Service: May 01, 2024 Billing Provider: GAYLE STREET DNP Common Visit Codes: [id number] INP/OBS CARE (HIGH) GAYLE STREET DNP May 01, 2024 21:36
[2024-05-01] MEDS ORDERED: NITROGLYCERIN 0.4 MG SL TAB SL PRN (21:45)
[2024-05-01] MEDS: SODIUM CHLORIDE 0.9% 1,000 ML IV SCH (22:00)
[2024-05-01] MEDS: ATORVASTATIN 20 MG TAB PO SCH (22:08)
[2024-05-01] MEDS: LABETALOL HCL 200 MG TAB PO SCH (22:15)
[2024-05-01] MEDS: HYDROcodone-ACET 5/325MG TAB PO PRN (23:31)
[2024-05-02 04:22] LABS: Basophils # (auto) 0 10 ^3/uL (0-0.2); Eosinophils # (auto) 0 10 ^3/uL (0-0.8); Lymphocytes # (auto) 1.2 10 ^3/uL (0.4-5.4); Monocytes # (auto) 0.6 10 ^3/uL (0-1.3); Nucleated Red Blood Cells % 0.2 %; Red Cell Distribution Width 12.2 % (11.8-14.3)
[2024-05-02 04:25] LABS: Basophils % (auto) 0.8 % (0.0-2.0); Eosinophils % (auto) 0.6 % (0.0-7.0); Hematocrit 39.5 % (36.0-46.0); Hemoglobin 13.7 g/dL (12.2-16.2); Lymphocytes % (auto) 24.5 % (10.0-50.0); Mean Corpuscular Hemoglobin 35.2 pg (28.0-32.0); Mean Corpuscular Hgb Conc. 34.6 g/dL (32.0-36.0); Mean Corpuscular Volume 101.6 fL (80.0-100.0); Monocytes % (auto) 12.8 % (0.0-12.0); Neutrophils % (auto) 61.3 % (37.0-80.0); Platelet Count (auto) 187 10^3/uL (140-450); Red Blood Cells 3.88 10^6/uL (4.0-5.20); White Blood Cell 4.9 10^3/uL (4.4-10.8)
[2024-05-02 04:36] LABS: Alanine Aminotransferase 10 U/L (7-40); Albumin 4.2 g/dL (3.2-4.8); Alkaline Phosphatase 68 U/L (46-116); Anion Gap 5 (5-15); Calcium 9.4 mg/dL (8.7-10.4); Carbon Dioxide 25 mmol/L (20-31); Chloride 107 mmol/L (98-107); Glucose 90 mg/dL (74-106); Potassium 3.7 mmol/L (3.5-5.1); Sodium 137 mmol/L (136-145)
[2024-05-02 04:37] LABS: Aspartate Aminotransferase 12 U/L (13-40); Blood Urea Nitrogen 9 mg/dL (9-23)
[2024-05-02 04:39] LABS: Total Protein 6.4 g/dL (5.7-8.2)
[2024-05-02 04:43] LABS: Bilirubin, Total 0.2 mg/dL (0.2-1.0)
[2024-05-02] MEDS: NICOTINE 7MG/24HR TOPICAL PATCH TD SCH (07:57)
[2024-05-02] MEDS: ASPirin 81 mg TAB PO SCH (09:36)
[2024-05-02] MEDS: LISINOPRIL 5 MG TAB PO SCH (09:36)
--- NOTE | 2024-05-02 13:29 | DVHPN2 ---
Assessment/Plan Assessment/Plan progress note 63 F with CVA, blindess, CAD s/p stent 1 year [employer], smoker, HTN admitted s/p mechanical fall Physical exam alert oriented x3 clear breath sounds s1 s2 rrr abdomen soft nontende no paraspinal tenderness no bruising hip ROM wnl no LE edema labs ekg imaging reviewed assessment and plan s/p mechanical fall l3 l4 spondylolithesis macrocytic non anemic old CVA no resiudal blindness cad s/p FANY smoker HTN PAD L spine MRI pain management PT patient reported have clots? not on AC? PAD vs DVT will do doppler resume home meds smoking cessation NRT diet cardiac dvt ppx lovenox Plan discussed with: Patient My Orders Orders - LISA BROWN MD Procedure Category Date Status Time Acetaminophen Tablet PHA 05/02/24 Verified (Tylenol Tablet) 14:00 Baclofen Tablet PHA 05/02/24 Verified (Liorisal Tablet) 14:00 Lorazepam 2mg/Ml Inj PHA 05/02/24 Verified (Ativan Inj) 13:30 Ketorolac Injection PHA 05/02/24 Verified (Toradol Injection) 13:30 Lumbar Spine Wo MRI 05/02/24 Verified Contrast 13:21 Pt Request For Service PT 05/02/24 Verified 13:21 Basic Metabolic Panel LAB 05/03/24 Verified 04:00 Complete Blood Count LAB 05/03/24 Verified 04:00 Date of Service: May 02, 2024 Billing Provider: LISA BROWN MD Common Visit Codes: [id number] INP/OBS CARE(HIGH) LISA BROWN MD May 02, 2024 13:29
[2024-05-02] MEDS ORDERED: KETOROLAC TROMETH 30 MG/ML 1ML VIAL IV PRN (13:30)
--- NOTE | 2024-05-02 14:25 | DVH ---
Bilateral lower extremity venous duplex Clinical History: said had old dvt unsure if its dvt or PAD Comparison: None Technique: Duplex Doppler evaluation of the deep venous systems of both lower extremities from the common femora l veins to the popliteal veins including color Doppler and spectral/pulsed waveform analysis was perf ormed. Findings: RIGHT SIDE: The common femoral vein demonstrates appropriate compressibility and waveform variability. There is compressibility/patency of the great saphenous vein at the proximal thigh. The femoral vein demonstrates appropriate compressibility and waveform variability. The deep femoral vein demonstrates appropriate compressibility and waveform variability. The popliteal vein demonstrates appropriate compressibility and waveform variability. There is normal compressibility at the tibioperoneal trunk. LEFT SIDE: The common femoral vein demonstrates appropriate compressibility and waveform variability. There is compressibility/patency of the great saphenous vein at the proximal thigh. The femoral vein demonstrates appropriate compressibility and waveform variability. The deep femoral vein demonstrates appropriate compressibility and waveform variability. The popliteal vein demonstrates appropriate compressibility and waveform variability. There is normal compressibility at the tibioperoneal trunk. Impression: 1. No right or left femoropopliteal venous thrombosis.
[2024-05-02] MEDS: BACLOFEN 10 MG TAB PO SCH (15:22)
[2024-05-02] MEDS: LORazepam 2MG/ML-1ML VIAL IV ONE (15:22)
[2024-05-02] MEDS: ACETAMINOPHEN 325 MG TAB PO SCH (15:33)
[2024-05-02 17:00] VITALS: BP 114/68; PULSE 56; RESP 18; TEMP 98; O2SAT 94
[2024-05-02 17:15] VITALS: PULSE 56; RESP 18; O2SAT 94
--- NOTE | 2024-05-02 17:55 | DVH ---
EXAM: MRI LUMBAR SPINE WO CONTRAST CLINICAL HISTORY: l3-4 spondylolythesis COMPARISON: CT lumbar spine 05/01/2024 TECHNIQUE: MRI imaging of the lumbar was performed on a MRI imaging system without intravenous contrast. FINDINGS: 5 [id number] lumbar-type vertebrae. Mild dextroconvex curvature of the lumbar spine. Mild chroni c loss of superior vertebral body height of T12 with superior endplate Schmorl node. No evidence of a cute traumatic fractures or spondylolisthesis. 3 mm retrolisthesis of L1 on L2. 2 mm anterolisthesis of L3 on L4. The conus terminates at the level of L1-L2 with no abnormal cord signal. T12-L1: Minimal posterior disc bulge without significant spinal canal or neural foramina stenosis. L1-L2: Minimal posterior disc bulge without significant spinal canal or neural foramina stenosis. L2-L3: Minimal posterior disc bulge without significant spinal canal stenosis. Mild bilateral neural foramina stenosis. L3-L4: Minimal posterior disc bulge with ligamentum flavum hypertrophy causing [id number] left lateral recess narrowing with mild spinal canal stenosis. Swgj-je-vwurjdlk left-sided neural foramina stenosis. L4-L5: Mild posterior disc bulge with superimposed central disc extrusion without significant spinal canal stenosis. Moderate right with mild left-sided neural foramina stenosis. L5-S1: Right eccentric disc protrusion without significant spinal canal or neural foramina stenosis. Nonspecific heterogeneous marrow signal on T1 and T2 which saturates out on the STIR. Heterogeneous T 2 marrow signal of the visualized iliac bone. Mild atrophy of the lower paraspinal muscles. IMPRESSION: No evidence of acute traumatic fractures. Multilevel mild degenerative changes of the lumbar spine. [id number]-[id number] left lateral recess narrowing with mild spinal canal stenosis at L3-L4. Moderate right-sided neural foramina stenosis at L4-L5
[2024-05-02 20:00] VITALS: PULSE 59; PULSE 78; RESP 19; O2SAT 93
[2024-05-02 21:00] VITALS: BP 122/70; PULSE 59; RESP 19; TEMP 98; O2SAT 93
[2024-05-03 05:00] VITALS: BP 135/71; PULSE 50; RESP 19; TEMP 97.7; O2SAT 88
[2024-05-03 07:55] LABS: Anion Gap 5 (5-15); Basophils # (auto) 0 10 ^3/uL (0-0.2); Basophils % (auto) 0.8 % (0.0-2.0); Carbon Dioxide 26 mmol/L (20-31); Eosinophils # (auto) 0.1 10 ^3/uL (0-0.8); Eosinophils % (auto) 1.8 % (0.0-7.0); Hematocrit 38.2 % (36.0-46.0); Hemoglobin 12.9 g/dL (12.2-16.2); Lymphocytes # (auto) 1.6 10 ^3/uL (0.4-5.4); Lymphocytes % (auto) 37.3 % (10.0-50.0); Mean Corpuscular Hemoglobin 34.7 pg (28.0-32.0); Mean Corpuscular Hgb Conc. 33.7 g/dL (32.0-36.0); Mean Corpuscular Volume 102.9 fL (80.0-100.0); Monocytes # (auto) 0.7 10 ^3/uL (0-1.3); Monocytes % (auto) 17.7 % (0.0-12.0); Neutrophils # (auto) 1.8 10 ^3/uL (1.6-8.6); Neutrophils % (auto) 42.4 % (37.0-80.0); Nucleated Red Blood Cells % 0.4 %; Platelet Count (auto) 171 10^3/uL (140-450); Potassium 4.3 mmol/L (3.5-5.1); Red Blood Cells 3.71 10^6/uL (4.0-5.20); Red Cell Distribution Width 12.3 % (11.8-14.3); Sodium 140 mmol/L (136-145); White Blood Cell 4.2 10^3/uL (4.4-10.8)
[2024-05-03 08:00] VITALS: PULSE 3
[2024-05-03 08:01] LABS: BUN/Creatinine Ratio 11.3 (10.0-20.0); Glucose 84 mg/dL (74-106)
[2024-05-03 08:05] LABS: Blood Urea Nitrogen 9 mg/dL (9-23); Chloride 109 mmol/L (98-107)
[2024-05-03 08:46] VITALS: BP 120/65; PULSE 54; RESP 16; TEMP 97; O2SAT 95
[2024-05-03] MEDS: ENOXAPARIN SOD 40 MG/0.4 ML SYRINGE SC SCH (09:27)
[2024-05-03] MEDS ORDERED: BACL20TA PO (12:36)
[2024-05-03] MEDS ORDERED: NICO14DI9 TD (12:36)
[2024-05-03] MEDS ORDERED: IBUP200C14 PO (12:36)
[2024-05-03] MEDS ORDERED: ACET-1079 PO (12:36)
--- NOTE | 2024-05-03 12:40 | DVHDS2 ---
Discharge Summary Date of Admission May 01, 2024 at 21:34 Date of Discharge: May 03, 2024 Labs/Diagnostic Data: Laboratory Results Test 05/03/24 06:29 05/02/24 04:05 White Blood Count 4.2 10^3/uL (4.4-10.8) Red Blood Count 3.71 10^6/uL (4.0-5.20) Hemoglobin 12.9 g/dL (12.2-16.2) Hematocrit 38.2 % (36.0-46.0) Mean Corpuscular Volume 102.9 fL (80.0-100.0) Mean Corpuscular Hemoglobin 34.7 pg (28.0-32.0) Mean Corpuscular Hemoglobin Concent 33.7 g/dL (32.0-36.0) Red Cell Distribution Width 12.3 % (11.8-14.3) Platelet Count 171 10^3/uL (140-450) Mean Platelet Volume 9.9 fL (6.9-10.8) Neutrophils (%) (Auto) 42.4 % (37.0-80.0) Lymphocytes (%) (Auto) 37.3 % (10.0-50.0) Monocytes (%) (Auto) 17.7 % (0.0-12.0) Eosinophils (%) (Auto) 1.8 % (0.0-7.0) Basophils (%) (Auto) 0.8 % (0.0-2.0) Neutrophils # (Auto) 1.8 10 ^3/uL (1.6-8.6) Lymphocytes # (Auto) 1.6 10 ^3/uL (0.4-5.4) Monocytes # (Auto) 0.7 10 ^3/uL (0-1.3) Eosinophils # (Auto) 0.1 10 ^3/uL (0-0.8) Basophils # (Auto) 0 10 ^3/uL (0-0.2) Nucleated Red Blood Cells 0.4 % Sodium Level 140 mmol/L (136-145) Potassium Level 4.3 mmol/L (3.5-5.1) Chloride Level 109 mmol/L (98-107) Carbon Dioxide Level 26 mmol/L (20-31) Anion Gap 5 (5-15) Blood Urea Nitrogen 9 mg/dL (9-23) Creatinine 0.80 mg/dL (0.550-1.02) Glomerular Filtration Rate Calc 82 mL/min (>90) BUN/Creatinine Ratio 11.3 (10.0-20.0) Serum Glucose 84 mg/dL (74-106) Calcium Level 9.0 mg/dL (8.7-10.4) Total Bilirubin 0.2 mg/dL (0.2-1.0) Aspartate Amino Transferase (AST) 12 U/L (13-40) Alanine Aminotransferase (ALT) 10 U/L (7-40) Alkaline Phosphatase 68 U/L (46-116) Total Protein 6.4 g/dL (5.7-8.2) Albumin 4.2 g/dL (3.2-4.8) Other Laboratory Tests 05/03/24 06:29 Brief Hx & Hospital Course: 63 F with CVA, blindess, CAD s/p stent 1 year [employer], smoker, HTN admitted s/p mechanical fall with back spasm. imaging showed L spine spondylolithesis. MRI with mild foraminal narowing without deficit. patient to follow up with orthospine and PCP as outpatient Condition at Discharge: Good Final Diagnosis/Problems List s/p mechanical fall back spasm limiting mobility interactible pain Discharge Disposition: Home Discharge Instruct/Medications Diet: Regular Activity: No Restrictions, As Tolerated Follow Up/Referral: PCP ortho spine Medications: baclofen tylenol advil nicotine patch 39 Discharge Statement: "Patient was advised to return to the ER or call 911 if any headaches, dizziness, shortness of breath, chest pain, abdominal pain, bleeding, fevers, or worsening of medical condition. Patient was counseled about treatment plan, medications, possible side effects, patientverbalized understanding. All questions were answered to the best of my ability. This discharge took greater then 30 minutes in planning, reviewing documentation, counseling the patient, and discussing with other team members." ASSESSMENT ASSESSMENT Assessment s/p mechanical fall l3 l4 spondylolithesis macrocytic non anemic old CVA no resiudal blindness cad s/p FANY smoker HTN PAD Date of Service: May 03, 2024 Billing Provider: LISA BROWN MD Common Visit Codes: [id number]-RXJ/OBS DISCH DAY >30min LISA BROWN MD May 03, 2024 12:40
[2024-05-03 13:00] VITALS: BP 147/67; PULSE 64; RESP 18; TEMP 98; O2SAT 98
[2024-05-03 17:00] VITALS: BP 143/76; PULSE 62; RESP 18; TEMP 98; O2SAT 97
== END 2024-05-03 18:57 | disposition home or self-care (01) | DRG 552 ==
LOC: EDBD 15:57 → ER 15:57 → OVERFLOW 21:34 → WEST WING 21:35
PROVIDERS: ADMIT Nurse Practitioner Family; ATTEND Student in an Organized Health Care Education/Training Program
DX: M43.16 Spondylolisthesis, lumbar region (principal); I25.10 Atherosclerotic heart disease of native coronary artery without angina pectoris; I10 Essential (primary) hypertension; F17.210 Nicotine dependence, cigarettes, uncomplicated; M62.830 Muscle spasm of back; H54.7 Unspecified visual loss; I73.9 Peripheral vascular disease, unspecified; Z86.73 Personal history of transient ischemic attack (TIA), and cerebral infarction without residual deficits; Z95.5 Presence of coronary angioplasty implant and graft; Z79.899 Other long term (current) drug therapy
CPT/HCPCS: 36415; 71045; 72131; 72148; 73700; 80048; 80053; 85025; 93970; 97163; 99291; G0378